=== PATIENT | female | born 1985 | race Caucasian/White ===

== ENCOUNTER 2017-02-25 14:25 | Emergency (ER) | payer OTHER ==
[~2017-02-25] VITALS: Ht 170.2 cm; Wt 131.5 kg
[2017-02-25 14:43] VITALS: BP 143/86
--- NOTE | 2017-02-25 14:49 | NUR ---
Patient ambulated to bed 6. RN evaluating patient at bedside.
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
--- NOTE | 2017-02-25 15:06 | NUR ---
ERMD AT BEDSIDE
[2017-02-25 15:31] VITALS: BP 143/86
--- NOTE | 2017-02-25 15:31 | NUR ---
Patient discharged with v/s stable. Written and verbal after care instructions given and explained. Patient alert, oriented and verbalized understanding of instructions. Ambulatory with steady gait. All questions addressed prior to discharge. ID band removed. Patient advised to follow up with PMD.Opportunity to ask questions provided and answered.
== END 2017-02-25 15:31 | disposition home or self-care (01) ==
LOC: MED 14:25
DX: S00.01XA Abrasion of scalp, initial encounter (principal); W22.8XXA Striking against or struck by other objects, initial encounter; Y93.89 Activity, other specified; Y92.89 Other specified places as the place of occurrence of the external cause; Y99.8 Other external cause status
CPT/HCPCS: 90471; 90715; 99283